=== PATIENT | male | born 1995 | race Caucasian/White ===

== ENCOUNTER 2019-05-21 08:46 | Emergency (ER) | payer MEDICAID ==
[~2019-05-21] VITALS: Ht 172.7 cm; Wt 87.0 kg
[2019-05-21] MEDS ORDERED: IBUPROFEN 600MG TABLET PO ONE (10:45)
[2019-05-21 11:14] VITALS: BP 117/78
== END 2019-05-21 11:20 | disposition home or self-care (01) ==
LOC: ER 09:19
DX: J39.8 Other specified diseases of upper respiratory tract (principal); Z88.8 Allergy status to other drugs, medicaments and biological substances
CPT/HCPCS: 87804; 99283

== ENCOUNTER 2022-04-07 14:26 | Emergency (ER) | payer MEDICAID ==
[~2022-04-07] VITALS: Ht 172.7 cm; Wt 78.0 kg
[2022-04-07] MEDS ORDERED: ACETAMINOPHEN 325MG TABLET PO ONE (16:15)
[2022-04-07] MEDS ORDERED: ACETAMINOPHEN WITH CODEINE 300/30MG TABLET PO ONE (16:30)
[2022-04-07] MEDS ORDERED: LIDOCAINE HCL/PF 1% 10 MG/ML 5ML VIAL INFIL ONE (16:30)
[2022-04-07] MEDS ORDERED: BACITRACIN ZINC OINT UDPKT TOP ONE (16:30)
[2022-04-07 16:59] VITALS: BP 146/64
[2022-04-07] MEDS ORDERED: AMOX1TAB16 MT (18:03)
== END 2022-04-07 18:31 | disposition home or self-care (01) ==
LOC: ER 14:41
DX: S61.411A Laceration without foreign body of right hand, initial encounter (principal); X58.XXXA Exposure to other specified factors, initial encounter; Y93.89 Activity, other specified; Y92.89 Other specified places as the place of occurrence of the external cause; Y99.8 Other external cause status
CPT/HCPCS: 12001; 99283; J3490